=== PATIENT | male | born 2005 | race Two or more races ===

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

== ENCOUNTER 2023-11-10 07:16 | Emergency (ER) | payer SELFPAY ==
[~2023-11-10] VITALS: Ht 167.6 cm; Wt 63.8 kg
[2023-11-10 07:37] VITALS: BP 126/75; PULSE 70; RESP 18; TEMP 97.6; O2SAT 100
[2023-11-10] MEDS ORDERED: NAP500T PO (07:52)
[2023-11-10] MEDS ORDERED: PROM1SOL4 PO (07:52)
[2023-11-10] MEDS ORDERED: PRED20TA2 PO (07:52)
[2023-11-10] MEDS ORDERED: LIDO2SOL26 MT (07:52)
== END 2023-11-10 08:20 | disposition home or self-care (01) ==
LOC: ER 07:16
DX: B34.9 Viral infection, unspecified (principal)

== ENCOUNTER 2024-04-28 09:55 | Emergency (ER) | payer SELFPAY ==
[~2024-04-28] VITALS: Ht 167.6 cm; Wt 72.4 kg
[~2024-04-28 09:55] MED LIST: LIDO2SOL26 MT; NAP500T PO; PRED20TA2 PO; PROM1SOL4 PO
[2024-04-28 10:26] VITALS: BP 124/64; PULSE 74; RESP 14; O2SAT 98
[2024-04-28 10:33] VITALS: TEMP 98.6
[2024-04-28] MEDS: IBUPROFEN 600 MG TAB PO ONE (10:33)
[2024-04-28] MEDS: cefTRIAXone SOD 1,000 MG VL IM ONE (10:34)
[2024-04-28] MEDS ORDERED: NAPR-746 PO (10:51)
[2024-04-28] MEDS ORDERED: CEPH500C PO (10:51)
== END 2024-04-28 10:56 | disposition home or self-care (01) ==
LOC: ER 09:55
DX: H66.92 Otitis media, unspecified, left ear (principal); I88.9 Nonspecific lymphadenitis, unspecified; R68.84 Jaw pain; Z79.899 Other long term (current) drug therapy
CPT/HCPCS: 96372; 99283; J0696